=== PATIENT | male | born 2000 | race African-American/Black ===

== ENCOUNTER 2022-05-17 22:35 | Emergency (ER) | payer OTHER, SELFPAY ==
[2022-05-17 22:46] VITALS: BP 151/97; PULSE 91; RESP 18; TEMP 36.8; O2SAT 99; BMI 35.2
--- NOTE | 2022-05-17 23:18 | ED.NURSE ---
Left thumb soaking in hibiclens and sterile water per order.
--- NOTE | 2022-05-17 23:41 | ED.NURSE ---
in room for laceration repair
--- NOTE | 2022-05-17 23:42 | ED_ITS ---
HPI - Wound/Laceration General Chief Complaint: Laceration/Wound Stated Complaint: Cut left hand Time Seen by Provider: 05/17/22 22:58 History of Present Illness HPI narrative: Patient is a healthy 22-year-old gentleman who lacerated his left thumb on the palmar aspect today thought piece of glass. The wound is well approximated. He is up-to-date on his tetanus shot. He has no neural muscular or vascular defects. Related Data Home Medications Medication Instructions Recorded Confirmed albuterol sulfate 90 mcg/actuation 2 inh INHALATION Q4-6H PRN 05/17/22 05/17/22 breath activated powder inhaler fluoxetine 20 mg capsule (Prozac) 20 mg PO DAILY 05/17/22 05/17/22 loratadine 10 mg capsule 10 mg PO DAILY 05/17/22 05/17/22 Allergies Allergy/AdvReac Type Severity Reaction Status Date / Time Augmentin Allergy Rash Uncoded 05/17/22 23:30 Penicillin Allergy Rash Uncoded 05/17/22 23:30 prednisone AdvReac Uncoded 05/17/22 22:53 Review of Systems Status of ROS: Reports: 10 or more systems reviewed and unremarkable except as noted in History and below [facility] Medical History Asthma Seasonal allergies Surgical History History of tonsillectomy and adenoidectomy Social History Smoking Status: Never smoker Do you use any of these nicotine containing products: None Second hand tobacco smoke exposure: No How often do you have a drink containing alcohol: never AUDIT-C Alcohol total score: 0 Non-prescribed substance use: denies use service: No Exam Narrative: Exam Narrative: EXAM GENERAL: Patient appears comfortable and well. EYES: No scleral icterus. LYMPH: No supraclavicular or cervical lymphadenopathy. SKIN: Well-approximated 3 cm laceration on the palmar aspect of the left thumb. EXT: No dependent lower extremity pedal edema. ABD: Soft, non tender, non distended. PSYCH: Good eye contact, speech is not pressured. Const: Vital Signs, click to edit/add: Vital Signs - 24 hr 05/17/22 22:46 Temperature 98.2 F Pulse Rate [Left P ulse Oximeter] 91 Respiratory Rate 18 Blood Pressure [Ri ght Upper Arm] 151/97 H Pulse Oximetry 99 Course Course Hospital Course: After cleaning the wound I did provide 2% lidocaine without epinephrine. This was injected subcutaneously. The wound was then closed with 3 running 3-0 Ethilon sutures using a running technique. Wound was dressed the patient was discharged home with outpatient follow-up. Vital Signs Vital signs: Initial Vital Signs Temperature 98.2 F 05/17/22 22:46 Temperature Source Temporal Artery Scan 05/17/22 22:46 Pulse Rate 91 05/17/22 22:46 Respiratory Rate 18 05/17/22 22:46 Blood Pressure 151/97 H 05/17/22 22:46 Blood Pressure Mean 115 05/17/22 22:46 Blood Pressure Position Supine 05/17/22 22:46 Pulse Oximetry 99 05/17/22 22:46 Oxygen Delivery Method 05/17/22 22:46 Vital Signs Temperature 98.2 F 05/17/22 22:46 Pulse Rate 91 05/17/22 22:46 Respiratory Rate 18 05/17/22 22:46 Blood Pressure 151/97 H 05/17/22 22:46 Pulse Oximetry 99 05/17/22 22:46 Temperature 98.2 F 05/17/22 22:46 Pulse Rate 91 05/17/22 22:46 Respiratory Rate 18 05/17/22 22:46 Blood Pressure 151/97 H 05/17/22 22:46 Pulse Oximetry 99 05/17/22 22:46 Discharge Plan Discharge Clinical Impression: Laceration Patient Disposition: Home, Self-Care Condition: Stable Additional Instructions: Sutures out in 10 days Prescriptions: No Action fluoxetine [Prozac] 20 mg capsule 20 mg PO DAILY 0RF loratadine 10 mg capsule 10 mg PO DAILY 0RF albuterol sulfate 90 mcg/actuation aerosol powdr breath activated 2 inh inhalation Q4-6H [id number] Stand Alone Forms: [facility] Info Instructions
[2022-05-18] MEDS: lidocaine HCL 2 % MULTIDOSE 20 ML VIAL INJECTION (00:15)
[2022-05-18 00:52] VITALS: RESP 16
== END 2022-05-18 00:53 | disposition home or self-care (01) ==
LOC: ED 05-18 00:39
PROVIDERS: Emergency Provider Internal Medicine
DX: S61.012A Laceration without foreign body of left thumb without damage to nail, initial encounter (principal); W25.XXXA Contact with sharp glass, initial encounter
CPT/HCPCS: 12002; 99283

== ENCOUNTER 2023-02-01 13:47 | Emergency (ER) | payer OTHER, SELFPAY ==
[2023-02-01 14:08] VITALS: BP 119/74; PULSE 116; RESP 18; TEMP 36.7; O2SAT 95; BMI 32.1
--- NOTE | 2023-02-01 15:21 | ED.WOUNDLAC ---
HPI - Wound/Laceration General Time Seen by Provider: 15:21 Date Seen: 02/01/23 Chief Complaint: Laceration/Wound Stated Complaint: Hand Lac Time Seen by Provider: 02/01/23 15:20 Source: patient and RN notes reviewed Mode of arrival: ambulatory Limitations: no limitations History of Present Illness HPI narrative: This 22-year-old male is coming in with a right 3rd finger laceration in 2 spots. He had a broken bottle in his book bag. He reached in and was not aware that the glass had broken there. Denies any numbness tingling. Does not have a sense that there is any retained foreign body. He is a student at [employer]. Is from [place] originally. Believes his immunizations to be up-to-date. Related Data Home Medications Medication Instructions Recorded Confirmed albuterol sulfate 90 mcg/actuation 2 inh inhalation Q4-6H PRN 05/17/22 05/17/22 breath activated powder inhaler fluoxetine 20 mg capsule (Prozac) 20 mg PO DAILY 05/17/22 05/17/22 loratadine 10 mg capsule 10 mg PO DAILY 05/17/22 05/17/22 Allergies Allergy/AdvReac Type Severity Reaction Status Date / Time Augmentin Allergy Rash Uncoded 05/17/22 23:30 Penicillin Allergy Rash Uncoded 05/17/22 23:30 prednisone AdvReac Uncoded 05/17/22 22:53 Review of Systems Narrative: As per HPI [facility] Medical History Asthma Seasonal allergies Surgical History History of tonsillectomy and adenoidectomy Social History Smoking Status: Never smoker Do you use any of these nicotine containing products: None Second hand tobacco smoke exposure: No How often do you have a drink containing alcohol: never AUDIT-C Alcohol total score: 0 Non-prescribed substance use: denies use service: No Exam Const: Vital Signs, click to edit/add: Vital Signs - 24 hr 02/01/23 14:08 Temperature 98.1 F Pulse Rate [Pulse Oximeter] 116 H Respiratory Rate 18 Blood Pressure [Le ft Upper Arm] 119/74 Pulse Oximetry 95 Oxygen Delivery Me thod Room Air 22-year-old male with right 3rd finger wrapped up. Bandaging was removed. He has a flap laceration along the lateral middle phalanx that is into the subcutaneous tissue. The lacerations curvilinear with the point of the curve distally. He also has a laceration just distal to the PIP joint and just into the subcutaneous tissue. There is some mild oozing at each site. These are palpated explored and irrigated with saline. No retained foreign body. Neurovascular status is intact, no loss of sensation of the finger. The finger has retained full range of motion and strength. Documenting provider has reviewed patient's vital signs: yes Course Vital Signs Vital signs: Initial Vital Signs Temperature 98.1 F 02/01/23 14:08 Temperature Source Temporal Artery Scan 02/01/23 14:08 Pulse Rate 116 H 02/01/23 14:08 Pulse Rhythm 02/01/23 14:08 Pulse Strength 3+ Normal 02/01/23 14:08 Respiratory Rate 18 02/01/23 14:08 Blood Pressure 119/74 02/01/23 14:08 Blood Pressure Mean 89 02/01/23 14:08 Blood Pressure Position Sitting 02/01/23 14:08 Pulse Oximetry 95 02/01/23 14:08 Oxygen Delivery Method 02/01/23 14:08 Vital Signs Temperature 98.1 F 02/01/23 14:08 Pulse Rate 116 H 02/01/23 14:08 Respiratory Rate 18 02/01/23 14:08 Blood Pressure 119/74 02/01/23 14:08 Pulse Oximetry 95 02/01/23 14:08 Oxygen Delivery Method 02/01/23 14:08 Temperature 98.1 F 02/01/23 14:08 Pulse Rate 116 H 02/01/23 14:08 Respiratory Rate 18 02/01/23 14:08 Blood Pressure 119/74 02/01/23 14:08 Pulse Oximetry 95 02/01/23 14:08 Oxygen Delivery Method 02/01/23 14:08 Discharge Plan Discharge Clinical Impression: Finger laceration Patient Disposition: Home, Self-Care Condition: Stable Instructions: Care For Your Stitches (ED), Finger Laceration (ED) Additional Instructions: May shower and wash hands but otherwise keep clean and dry until wounds are healed. Follow-up with the nurse practitioner at [facility] in about 10 days to assess the wound for suture removal. Use bandages with bacitracin or Vaseline as needed, do recommend keeping these wounds covered when your out in public. May use Tylenol and ibuprofen if needed for any discomfort. If there is concern of infection, please seek re-evaluation. Review handouts. Prescriptions: No Action fluoxetine [Prozac] 20 mg capsule 20 mg PO DAILY loratadine 10 mg capsule 10 mg PO DAILY albuterol sulfate 90 mcg/actuation aerosol powdr breath activated 2 inh inhalation Q4-6H PRN Follow Up/Referrals: Provider,Not a Local [Primary Care Provider] - Stand Alone Forms: [facility] Info Instructions Procedures Laceration Laceration 1: Pre procedure diagnosis: 1 cm laceration on dorsum of right 3rd finger, distal to PIP joint Post procedure diagnosis: Same Site marking: not applicable Name of person performing procedure: Alecia Alanis Site: hand Side (If applicable): right Size (cm): 1 Description: linear Depth: simple, single layer Local Anesthetic: lidocaine 1% Amount of anesthesia used (mL): 3 Pre-repair: wound explored and irrigated extensively Skin layer closed with: other (Ethilon) Size (cm): 3-0 Number of sutures: 3 Technique: simple, interrupted Wound cleansing: sterile water Estimated blood loss (if any): less than 5mls Conclusion: patient tolerated procedure Laceration 2: Pre procedure diagnosis: Flap laceration right 3rd finger Post procedure diagnosis: Same Site marking: not applicable Name of person performing procedure: Alecia Alanis Site: hand Side (If applicable): right Size (cm): 1 Description: other (Flap/curvilinear) Depth: simple, single layer Local Anesthetic: lidocaine 1% Amount of anesthesia used (mL): 3 (3 mL in total was used between the 2 lacerations sites) Pre-repair: wound explored and irrigated extensively Skin layer closed with: other (Ethilon) Size (cm): 3-0 Number of sutures: 3 Technique: simple, interrupted Wound cleansing: sterile water Estimated blood loss (if any): less than 5mls Conclusion: patient tolerated procedure
== END 2023-02-01 16:10 | disposition home or self-care (01) ==
PROVIDERS: Emergency Provider Family Medicine
DX: S61.212A Laceration without foreign body of right middle finger without damage to nail, initial encounter (principal); W25.XXXA Contact with sharp glass, initial encounter
CPT/HCPCS: 12001; 99283